=== PATIENT | female | born 1970 | race Caucasian/White ===

== ENCOUNTER → 2016-04-23 | Outpatient (CLI) | payer BC ==
[~2016-04-23] MED LIST: CHANTIX STARTER1 TAB PO; NKHM; PERCOCET 325 MG1 TA2 PO; PREDNISONE10 MG PO; SONATA5 MG PO; ZITHROMAX500 MG PO
== END | disposition home or self-care (01) ==
LOC: ORTHO 01:25
DX: S92.902D Unspecified fracture of left foot, subsequent encounter for fracture with routine healing (principal); X58.XXXD Exposure to other specified factors, subsequent encounter

== ENCOUNTER → 2016-07-13 | Outpatient (CLI) | payer BC | END | disposition home or self-care (01) | LOC: RAD 07:16 | DX: M54.2 Cervicalgia (principal) ==

== ENCOUNTER 2016-12-28 16:20 | Emergency (ER) | payer OTHER ==
[~2016-12-28] VITALS: Ht 172.7 cm; Wt 72.6 kg
[2016-12-28 16:29] VITALS: BP 122/80
[2016-12-28 17:20] LABS: BASO % 0.3 % (0.0-1.0); EOS % 0.3 % (1.0-4.0); HEMATOCRIT 41.6 % (37.0-47.0); HEMOGLOBIN 14.2 g/dl (12.0-16.0); LYMPH # 1.7 10*3/uL (1.3-4.4); LYMPH % 28.1 % (27.0-41.0); MEAN CELL VOLUME 93.5 fl (81.0-99.0); MEAN CORPUSCULAR HGB 31.9 pg (27.0-31.0); MEAN CORPUSCULAR HGB CONC 34.1 g/dl (33.0-37.0); MEAN PLATELET VOLUME 10.5 fl (9.6-12.3); MONO # 0.6 10*3/uL (0.1-1.0); MONO % 9.7 % (3.0-9.0); NEUT # 3.7 10*3/uL (2.3-7.9); NEUT % 61.4 % (47.0-73.0); PLATELET COUNT AUTOMATED 220 10*3/uL (130-400); RED BLOOD COUNT 4.45 10*6/uL (4.10-5.10); RED CELL DISTRI WIDTH 12.6 % (0-14.5); WHITE BLOOD COUNT 6.1 10*3/uL (4.8-10.8)
[2016-12-28 17:36] LABS: ALBUMIN 3.7 gm/dl (3.1-4.5); ALKALINE PHOSPHATASE 62 U/L (45-117); BUN 19 mg/dl (7-24); CHLORIDE 106 mmol/L (98-107); CPK 137 U/L (26-192); CREATININE 0.74 mg/dL (0.55-1.02); POTASSIUM 3.4 mmol/L (3.5-5.1); SGOT/AST 18 IU/L (3-35); SGPT/ALT 28 U/L (12-78); SODIUM 140 mmol/L (136-145); TOTAL PROTEIN 7.5 gm/dL (6.4-8.2)
[2016-12-28 17:37] LABS: CKMB 1.2 ng/ml (0.5-3.6)
[2016-12-28 17:43] LABS: TROPONIN I < 0.015 ng/ml (<0.045)
[2016-12-28] MEDS ORDERED: ZITHROMAX250 MG PO (18:44)
[2016-12-28] MEDS ORDERED: ZOFRAN ODT4 MG SL (19:01)
== END 2016-12-28 19:38 | disposition home or self-care (01) ==
LOC: EDSTATUS 16:20 → ED 16:21
PROVIDERS: Nurse Practitioner Family
DX: R40.0 Somnolence (principal); R53.1 Weakness; T48.6X5A Adverse effect of antiasthmatics, initial encounter; T37.8X5A Adverse effect of other specified systemic anti-infectives and antiparasitics, initial encounter; J06.9 Acute upper respiratory infection, unspecified; B97.89 Other viral agents as the cause of diseases classified elsewhere; Z88.6 Allergy status to analgesic agent; Y92.9 Unspecified place or not applicable

== ENCOUNTER → 2017-05-03 | Outpatient (CLI) | payer OTHER ==
[~2017-05-03] MED LIST changes: +ZITHROMAX250 MG PO; +ZOFRAN ODT4 MG SL
== END | disposition home or self-care (01) ==
LOC: MAMMO 01:13
DX: Z12.31 Encounter for screening mammogram for malignant neoplasm of breast (principal)

== ENCOUNTER → 2018-05-04 | Outpatient (CLI) | payer OTHER | END | disposition home or self-care (01) | LOC: RESCLI 09:47 | DX: H65.03 Acute serous otitis media, bilateral (principal); J10.1 Influenza due to other identified influenza virus with other respiratory manifestations; K52.9 Noninfective gastroenteritis and colitis, unspecified; R68.89 Other general symptoms and signs; F17.210 Nicotine dependence, cigarettes, uncomplicated; Z88.2 Allergy status to sulfonamides ==

== ENCOUNTER → 2018-07-11 | Outpatient (CLI) | payer OTHER | END | disposition home or self-care (01) | LOC: MAMMO 07-04 15:40 | DX: Z12.31 Encounter for screening mammogram for malignant neoplasm of breast (principal) ==

== ENCOUNTER 2018-08-08 05:26 | Emergency (ER) | payer OTHER ==
[~2018-08-08] VITALS: Ht 157.4 cm; Wt 72.6 kg
--- NOTE | ~2018-08-08 | EKG ---
[place], [place] ELECTROCARDIOGRAM REPORT NAME: JOSE PHILLIPS UNIT #: [id number] ROOM: DOCTOR: EPIPHANY DRAFT REPORT BIRTHDATE: [birth year] [facility] Test Date: 2018-08-08 Test Time: 05:31:56 Pat Name: JOSE PHILLIPS Department: Room: Gender: F Medical Assistant Internal Medicine: : 1970 Requested By: ADAMA RIZZO Order Number: [id number] Reading MD: Lucero Nassar MD Measurements Intervals [place] Rate: 84 P: 40 TX: 133 QRS: 24 QRSD: 90 T: 41 QT: 387 QTc: 458 Interpretive Statements Sinus rhythm Electronically Signed On 08-09-2018 15:59:28 PDT by Lucero Nassar MD CM:EKGRPT:ELECTROCARDIOGRAM REPORT [id number] ADAMA HUFF DRAFT REPORT ADAMA RIZZO DO
[2018-08-08 06:02] LABS: HEMOGLOBIN 15.5 g/dl (12.0-16.0); MEAN CORPUSCULAR HGB CONC 33.7 g/dl (33.0-37.0); PLATELET COUNT AUTOMATED 257 10*3/uL (130-400); RED BLOOD COUNT 4.84 10*6/uL (4.10-5.10); RED CELL DISTRI WIDTH 13.1 % (0-14.5); WHITE BLOOD COUNT 10.2 10*3/uL (4.8-10.8)
[2018-08-08 06:12] LABS: INTERNATIONAL NORM RATIO 0.9 (2.0-3.5)
[2018-08-08 06:13] LABS: ALBUMIN 3.9 gm/dl (3.1-4.5); ALKALINE PHOSPHATASE 69 U/L (45-117); BUN 17 mg/dl (7-24); CHLORIDE 107 mmol/L (98-107); CREATININE 0.76 mg/dL (0.55-1.02); POTASSIUM 3.8 mmol/L (3.5-5.1); SGOT/AST 14 IU/L (3-35); SGPT/ALT 31 U/L (12-78); SODIUM 139 mmol/L (136-145); TOTAL PROTEIN 7.6 gm/dL (6.4-8.2)
[2018-08-08 06:19] LABS: TROPONIN I < 0.015 ng/ml (<0.045)
[2018-08-08 06:28] LABS: BASOPHILS 1 % (0-1); PLATELET SUFFICIENCY NORMAL (NORMAL); TOTAL CELLS COUNTED 100 #CELLS
[2018-08-08 06:33] VITALS: BP 108/59
[2018-08-08 06:47] LABS: ACT PARTIAL THROMBO TIME 22.1 SECONDS (20.8-31.5)
== END 2018-08-08 06:57 | disposition home or self-care (01) ==
LOC: ED 05:26
PROVIDERS: Student in an Organized Health Care Education/Training Program
DX: R07.89 Other chest pain (principal); R11.10 Vomiting, unspecified; F17.200 Nicotine dependence, unspecified, uncomplicated; Z88.8 Allergy status to other drugs, medicaments and biological substances; Z90.49 Acquired absence of other specified parts of digestive tract

== ENCOUNTER → 2019-06-29 | Day surgery (SDC) | payer OTHER ==
[~2019-06-29] VITALS: Ht 157.4 cm; Wt 63.5 kg
[~2019-06-29] MED LIST changes: +MOTRIN IB200 M2 PO; +OMEPRAZOLE20 M2 PO
[2019-06-29 10:55] VITALS: BP 122/75
[2019-06-29 11:27] VITALS: BP 108/64
[2019-06-29 11:32] VITALS: BP 113/73
[2019-06-29 11:36] VITALS: BP 119/71
== END | disposition home or self-care (01) ==
LOC: SDC 07:02
DX: L57.0 Actinic keratosis (principal); Z98.890 Other specified postprocedural states; Z87.891 Personal history of nicotine dependence; Z83.3 Family history of diabetes mellitus; Z82.49 Family history of ischemic heart disease and other diseases of the circulatory system

== ENCOUNTER → 2021-08-25 | Outpatient (CLI) | payer OTHER | END | disposition home or self-care (01) | LOC: MAMMO 07:33 | PROVIDERS: ATTEND Nurse Practitioner | DX: Z12.31 Encounter for screening mammogram for malignant neoplasm of breast (principal) ==

== ENCOUNTER → 2021-12-18 | Outpatient (CLI) | payer OTHER | END | disposition home or self-care (01) | LOC: RAD 12:02 | PROVIDERS: ATTEND Nurse Practitioner | DX: M77.31 Calcaneal spur, right foot (principal); M76.891 Other specified enthesopathies of right lower limb, excluding foot ==

== ENCOUNTER → 2022-04-20 | Outpatient (CLI) | payer OTHER | END | disposition home or self-care (01) | LOC: RESCLI 08:13 | PROVIDERS: ATTEND Student in an Organized Health Care Education/Training Program | DX: U07.1 COVID-19 (principal); J11.1 Influenza due to unidentified influenza virus with other respiratory manifestations; Z88.2 Allergy status to sulfonamides; F17.200 Nicotine dependence, unspecified, uncomplicated; Z98.890 Other specified postprocedural states; Z79.899 Other long term (current) drug therapy ==